=== PATIENT | male | born 2000 | race Two or more races ===

== ENCOUNTER 2021-01-22 17:14 | Emergency (ER) | payer MEDICAID ==
[~2021-01-22] VITALS: Ht 160 cm; Wt 49.9 kg
[2021-01-22] MEDS ORDERED: ACETAMINOPHEN 325 MG TABLET PO ONE (17:30)
[2021-01-22] MEDS ORDERED: ACETAMINOPHEN 325 MG TABLET ONE (17:38)
--- NOTE | 2021-01-22 17:48 | NUR ---
PT WAS EVALUATED BY DR SMITH. PT WAS D/C'd TO HOME. D/C INSTRUCTIONS GIVEN TO THE PT BY DR SMITH.
[2021-01-22 17:49] VITALS: BP 128/68
== END 2021-01-22 17:51 | disposition home or self-care (01) ==
LOC: ER 17:14
DX: H10.9 Unspecified conjunctivitis (principal)
CPT/HCPCS: A4663